=== PATIENT | female | born 1975 | race Caucasian/White ===

== ENCOUNTER 2017-05-07 08:01 | Inpatient (IN) | payer MEDICAID ==
[~2017-05-07] VITALS: Ht 162.6 cm; Wt 55.8 kg
--- NOTE | 2017-05-07 08:01 | NUR ---
STACIE 78 FROM HOME FOR ALTERED MENTAL STATUS, SM=[id number] IN THE FIELD. NAD NOTED. VSS. PT PLACED IN GOWN AND MONITOR. DR THAYER AT BEDSIDE FOR EVAL.
[2017-05-07] MEDS ORDERED: IV SET PRIMARY 1 EA INFUS.SET MC ONE (08:11)
[2017-05-07] MEDS ORDERED: IV NS 0.9% 1,000 ML ONE (08:11)
[2017-05-07] MEDS ORDERED: LORAZEPAM INJ 2 MG/ML VIAL ONE ×3 (08:17→09:50)
[2017-05-07] MEDS ORDERED: HALOPERIDOL LACTATE INJ 5 MG/ML VIAL ONE (08:27)
[2017-05-07] MEDS ORDERED: diphenhydrAMINE HCL 50 MG/ML VIAL ONE (08:27)
[2017-05-07] MEDS ORDERED: LORAZEPAM INJ 2 MG/ML VIAL IV ONE ×4 (08:30→10:30)
[2017-05-07] MEDS ORDERED: IV NS 0.9% 1,000 ML BAG IV ONE (08:30)
[2017-05-07] MEDS ORDERED: HALOPERIDOL LACTATE INJ 5 MG/ML VIAL IM ONE ×2 (08:30→20:00)
[2017-05-07] MEDS ORDERED: diphenhydrAMINE HCL 50 MG/ML VIAL IV ONE (08:30)
[2017-05-07 08:42] LABS: APPEARANCE,URINE SL CLOUDY (CLEAR); BILIRUBIN,URINE NEGATIVE (NEGATIVE); BLOOD, URINE 2+ Ery/uL (NEGATIVE); COLOR,URINE YELLOW (YELLOW); KETONES,URINE 2+ (NEGATIVE); LEUKOCYTE ESTERASE ,URINE NEGATIVE (NEGATIVE); NITRITE, URINE NEGATIVE (NEGATIVE); PROTEIN,URINE TRACE mg/dl (NEGATIVE); UGLUCOSE NEGATIVE (NEGATIVE); UROBILINOGEN,URINE 0.2 EU/dL (0.2)
[2017-05-07 08:45] LABS: PREGNANCY TEST URINE QUAL NEGATIVE (NEGATIVE)
[2017-05-07 08:50] LABS: BACTERIA,URINE 1+ /HPF (None Seen); WBC,URINE 0-2 /HPF (0-3)
[2017-05-07 08:55] LABS: HEMATOCRIT 36 % (33-45); HEMOGLOBIN 12.5 g/dL (11.5-14.8); LYMPHOCYTES # (AUTO) 0.9 /CMM (0.8-4.8); LYMPHOCYTES % (AUTO) 7.6 % (20.0-44.0); MEAN CORPUSCULAR HEMOGLOBIN 30 PG (26.0-33.0); MEAN CORPUSCULAR HGB CONC 35 g/dl (31.0-36.0); MEAN CORPUSCULAR VOLUME 85 fL (82-100); MONOCYTES # (AUTO) 0.6 /CMM (0.1-1.30); MONOCYTES % (AUTO) 4.6 % (2.0-12.0); NEUTROPHILS # (AUTO) 10.5 /CMM (1.8-8.9); NEUTROPHILS % (AUTO) 87.8 % (43.0-81.0); PLATELET COUNT (AUTO) 184 /CMM (150-450); RDW COEFFICIENT OF VARIATION 11.6 (11.5-15.0); RED BLOOD CELL COUNT(AUTO) 4.18 MIL/uL (4.0-5.2); WHITE BLOOD COUNT (AUTO) 11.9 K/uL (4.3-11.0)
[2017-05-07 09:05] LABS: CALCIUM, SERUM 8.1 mg/dL (8.5-10.1); CARBON DIOXIDE 20 mmol/L (21-32); CHLORIDE 88 mmol/L (98-107); CREATININE 0.8 mg/dL (0.6-1.3); GLUCOSE 118 mg/dL (74-106); POTASSIUM 4.7 mmol/L (3.5-5.1); SODIUM SERUM 124 mmol/L (136-145); UREA NITROGEN, BLOOD 7 mg/dL (7-18)
[2017-05-07 09:11] LABS: ALANINE AMINOTRANSFERASE 40 U/L (12-78); ALBUMIN 3.5 g/dL (3.4-5.0); ALKALINE PHOSPHATASE 51 U/L (46-116); ASPARTATE AMINOTRANSFERASE 92 U/L (15-37); BILIRUBIN,DIRECT 0.4 mg/dL (0.0-0.2); BILIRUBIN,TOTAL 1.4 mg/dL (0.2-1.0); TOTAL PROTEIN, SERUM 7.3 g/dL (6.4-8.2)
[2017-05-07 09:13] LABS: ALCOHOL, BLOOD < 3 mg/dL (0-0)
[2017-05-07 09:21] LABS: THYROID STIMULATING HORMONE 0.957 uIU/mL (0.358-3.74)
--- NOTE | 2017-05-07 10:21 | NUR ---
PT BACK FROM CT
--- NOTE | 2017-05-07 14:25 | NUR ---
PAGED DR VILLALOBOS FOR ADMISSION
[2017-05-07 14:56] LABS: CALCIUM, SERUM 8.2 mg/dL (8.5-10.1); CREATININE 0.8 mg/dL (0.6-1.3); POTASSIUM 3.4 mmol/L (3.5-5.1)
--- NOTE | 2017-05-07 15:12 | NUR ---
REPORT GIVEN TO CARITO EDMONDS FOR TEE
[2017-05-07 15:50] VITALS: BP 110/65
--- NOTE | 2017-05-07 15:50 | NUR ---
RN NOTES PT RECEIVED FROM ER IN ROOM 113-2. PT IS LETHARGIC , NON VERBAL , RESTLESS, RESPIRATION EVEN AND UNLABORED , ON , SAT 97%, PLACED ON TELE MONITOR , ST HR IN 100'S , R AC IV SITE CDI, SKIN ASSESSMENT AND PHOTO DONE, SR UP x3, CALL LIGHT WITHIN EASY REACH, CONTINUE , BED ALARM ON, CONTINUE TO MONITOR PT CLOSELY AND NOTIFY MD FOR ANY SIGNIFICANT CHANGES.
[2017-05-07] MEDS ORDERED: MAGNESIUM HYDROXIDE 30 ML UDC PO PRN (17:30)
[2017-05-07] MEDS ORDERED: ENOXAPARIN SODIUM 40 MG/0.4 ML DISP.SYRIN SQ SCH (17:30)
[2017-05-07] MEDS ORDERED: ONDANSETRON HCL/PF 4 MG/2 ML VIAL IVP PRN (17:30)
[2017-05-07] MEDS ORDERED: ACETAMINOPHEN 325 MG TABLET PO PRN (17:30)
[2017-05-07] MEDS ORDERED: Z GUARD REMEDY 2 OZ OINT TP PRN (17:30)
[2017-05-07] MEDS ORDERED: MAG HYDROX/AL HYDROX/SIMETH 30 ML UDC PO PRN (17:30)
[2017-05-07] MEDS ORDERED: IV SET PRIMARY PUMP SET 1 EA INFUS.SET MC ONE (17:44)
[2017-05-07] MEDS: IV NS 0.9% 1,000 ML IV PRN (17:49)
[2017-05-07 18:14] LABS: CALCIUM, SERUM 8.4 mg/dL (8.5-10.1); CREATININE 0.7 mg/dL (0.6-1.3); POTASSIUM 3.2 mmol/L (3.5-5.1)
--- NOTE | 2017-05-07 18:36 | NUR ---
RN NOTES PT REMAINS THE SAME ,RESTLESS, NON VERBAL , K=3.2, DR VILLALOBOS NOTIFIED , MEDICATED PER MD ORDER , WILL ENFORCE TO TIRE RECAPPING MACHINE OPERATOR FOR CONTINUITY OF CARE
--- NOTE | 2017-05-07 19:00 | NUR ---
RN NOTES K= 3.2, PT VERY RESTLESS, DR SCHULZ PAGED AND NOTIFIED , NEW ORDER GIVEN .
[2017-05-07] MEDS: LORAZEPAM INJ 2 MG/ML VIAL IV PRN (19:21)
[2017-05-07] MEDS ORDERED: POTASSIUM CHLORIDE 20 MEQ POWDER PACKET PO ONE (19:30)
--- NOTE | 2017-05-07 19:53 | NUR ---
TELE-TD/TECHNICIAN ASSISTANT DR. SCHULZ PAGED TWICE REGARDING PT EXTREME AGITATION POST MED ADMINISTRATION. AWAITING CALL BACK.
--- NOTE | 2017-05-07 19:57 | NUR ---
TELE-TD/IRONWORKER APPRENTICE SHOP DR. SCHULZ CALLED BACK NEW ORDERS RECEIVED AND CARRIED OUT.
[2017-05-07 20:00] VITALS: BP 109/67
--- NOTE | 2017-05-07 20:05 | NUR ---
TELE-TD/APPRENTICE LINEMAN THIRD STEP PT MEDICATED ORDERED. WILL CONTINUE TELE MONITORING. SITTER AT BEDSIDE. WILL CONTINUE TO MONITOR CLOSELY.
[2017-05-08] VITALS (7 sets, daily range): BP systolic 86–99; BP diastolic 55–73
[2017-05-08] MEDS ORDERED: POTASSIUM CL. PREMIX PERIPHER. 150 ML ONE (00:20)
[2017-05-08] MEDS ORDERED: SECONDARY IV SET 1 EA INFUS.SET MC ONE ×2 (00:20→12:13)
[2017-05-08] MEDS: POTASSIUM CL. PREMIX PERIPHER. 50 ML IV SCH ×8 (00:29→15:45)
[2017-05-08] MEDS: LORAZEPAM INJ 2 MG/ML VIAL IV PRN (01:30)
[2017-05-08] MEDS ORDERED: POTASSIUM CL. PREMIX PERIPHER. 50 ML ONE (01:31)
[2017-05-08] MEDS ORDERED: HALOPERIDOL LACTATE INJ 5 MG/ML VIAL IM PRN (05:00)
--- NOTE | 2017-05-08 05:01 | NUR ---
TELE-TD/MANAGING JEWELER PT STILL EXTREMELY AGITATED. NEW ORDERS RECEIVED AND CARRIED OUT. SEPULVEDA CATH PLACED VIA STERILE PROCEDURE BY MYSELF. PT TOLERATED PROCEDURE, BUT REMAINS HIGHLY AGITATED WITH EXTREME CONFUSION. SITTER AT BEDSIDE. WILL CONTINUE TO MONITOR. Addendum: 05/08/17 at 0510 by LATANYA LEWIS LVN PT ALSO DISLODGED HER IV. MADE AWARE. ORDER TO DC LAST BAG OF IVPB KCL AND OK FOR PT TO BE WITHOUT IV ACCESS AT THIS TIME.
--- NOTE | 2017-05-08 07:20 | NUR ---
RN INITIAL NOTES: Rec'd pt asleep on bed, not in any distress, aroused by tapping her shoulder - opens eyes, A/O x1, moans. On room air, no SOB noted. On telemonitor, Has FC patent & intact draining to adequate urine output. No IV line noted. Has B wrist restraints, no injury noted. Provided comfort & safety measures. Bed kept low & in locked position. 1:1 sitter at bedside. Will continue to monitor.
[2017-05-08 07:23] LABS: HEMATOCRIT 39 % (33-45); HEMOGLOBIN 13.9 g/dL (11.5-14.8); LYMPHOCYTES # (AUTO) 1.3 /CMM (0.8-4.8); LYMPHOCYTES % (AUTO) 13.2 % (20.0-44.0); MEAN CORPUSCULAR HEMOGLOBIN 30 PG (26.0-33.0); MEAN CORPUSCULAR HGB CONC 36 g/dl (31.0-36.0); MEAN CORPUSCULAR VOLUME 84 fL (82-100); MONOCYTES # (AUTO) 0.5 /CMM (0.1-1.30); MONOCYTES % (AUTO) 4.8 % (2.0-12.0); NEUTROPHILS # (AUTO) 8.2 /CMM (1.8-8.9); PLATELET COUNT (AUTO) 148 /CMM (150-450); RDW COEFFICIENT OF VARIATION 11.9 (11.5-15.0); RED BLOOD CELL COUNT(AUTO) 4.64 MIL/uL (4.0-5.2)
[2017-05-08 07:38] LABS: CALCIUM, SERUM 8.1 mg/dL (8.5-10.1); CREATININE 0.7 mg/dL (0.6-1.3); MAGNESIUM 1.8 mg/dL (1.8-2.4); PHOSPHORUS 2.6 mg/dL (2.5-4.9); POTASSIUM 3.4 mmol/L (3.5-5.1)
[2017-05-08] MEDS: PANTOPRAZOLE 40 MG TABLET.DR PO SCH (08:08)
--- NOTE | 2017-05-08 10:00 | NUR ---
RN NOTES: Dr. Ospina made aware that 3 bags of KCL infused last night as pt pulled out her IV line. K this AM is 3.4 w/ orders to give 40 meqs KCL, carried out.
[2017-05-08] MEDS: IV NS 0.9% 1,000 ML IV PRN (12:35)
--- NOTE | 2017-05-08 15:00 | NUR ---
RN NOTES: Pt seen & examined by Dr. Ospina.
--- NOTE | 2017-05-08 15:29 | NUR ---
RN NOTES: As per Dr. Anai RUCKER Haloperidol.
[2017-05-08] MEDS: HYDROCODONE/APAP 5/325MG 1 EACH TABLET PO PRN ×2 (15:44→18:42)
--- NOTE | 2017-05-08 16:00 | NUR ---
RN NOTES: Pt seen & examined by Dr. Gleason.
[2017-05-08 18:28] LABS: CALCIUM, SERUM 7.8 mg/dL (8.5-10.1); CREATININE 0.6 mg/dL (0.6-1.3); POTASSIUM 3.9 mmol/L (3.5-5.1)
[2017-05-08 18:38] LABS: URINE SODIUM, RANDOM < 5 mmol/l (40-220)
--- NOTE | 2017-05-08 18:56 | NUR ---
RN CLOSING NOTES: Pt is more alert, oriented x 2-3, not in any distress, cooperative, able to make needs known but still unable to recall what had happened to her yesterday. On room air, no SOB. On telemonitor, now SR. R hand G22 kept patent & intact w/ no signs of infection/ infiltration noted w/ NS x 100 cc/hr infusing well. Pt off bilateral wrist restraints, no injury noted. Family at bedside. Pt has 1:1 sitter. Kept well rested. Needs attended. Bed kept low & in locked position. Will endorse to PM RN for TEE.
[2017-05-08 21:27] LABS: OSMOLALITY,URINE 155 mOS/kg (340-1090)
--- NOTE | 2017-05-08 21:54 | NUR ---
RN RAJ NOTES SPOKE WITH DR SCHULZ REGARDING LOVENOX 40MG, PLT OF 148 TODAY AND YESTERDAY PLT IS 184. PT IS ABLE TO MOVE, ORDERED TO D/C LOVENOX, CARRIED OUT THE ORDER. WILL CONTINUE TO MONITOR
[2017-05-09] VITALS: BP 94/58
[2017-05-09] MEDS: IV NS 0.9% 1,000 ML IV PRN ×2 (02:53→13:10)
[2017-05-09 04:00] VITALS: BP 85/49
--- NOTE | 2017-05-09 07:00 | NUR ---
RN NOTES: RECEIVED PT ON BED, A/Ox4, RESPIRATION EVEN AND UNLABORED, ON RA , NO SOB NOTED, ON TELE SR , OOB TO BSC WITH MINIMUM ASSIST, SUPPORTIVE FAMILY AT THE BEDSIDE ,R HAND IV SITE CDI, IVF NS AT 100CC/HR RUNNING VIA R HAND IV SITE, PT JOSE MIGUEL ANY DISTRESS , CONTINUE TO MONITOR PT CLOSELY AND NOTIFY MD FOR ANY SIGNIFICANT CHANGES
--- NOTE | 2017-05-09 07:23 | NUR ---
RN CLOSING NOTES NO SIGNIFICANT CHANGES OVERNIGHT. PT IS ALERT ORIENTED X4, AND COOPERATIVE WITH ALL CARE. PT IS ON ROOM AIR AND SATURATING VERY WELL, IV SITE IS PATENT, NO S/SX OF INFECTION OR INFILTRATION NOTED. ALL MEDS GIVEN ORDERED PT PETER IT WELL. ASSISTED PT WITH ADL WITH MINIMAL ASSIST. ALL SAFETY MEASURES MET, WILL ENDORSED TO AM NURSE FOR CONTINUATION OF CARE.
--- NOTE | 2017-05-09 07:54 | NUR ---
WOUND CARE CONSULT: PT PRESENTS WITH DRY ABRASIONS, PRESENT ON ADMISSION. PT ABLE TO MOVE INDEPENDENTLY IN BED. PT IS CONTINENT BUT STATES IS HAVING RECTAL BLEEDING. WILL SEE PRN. Addendum: 05/09/17 at 0755 by LISET VILLANUEVA WNDNU Amended: Links added.
[2017-05-09 08:00] VITALS: BP 90/60
[2017-05-09] MEDS: PANTOPRAZOLE 40 MG TABLET.DR PO SCH (08:21)
[2017-05-09 08:37] LABS: CALCIUM, SERUM 7.5 mg/dL (8.5-10.1); CREATININE 0.5 mg/dL (0.6-1.3); MAGNESIUM 1.7 mg/dL (1.8-2.4); PHOSPHORUS 2.2 mg/dL (2.5-4.9); POTASSIUM 3.5 mmol/L (3.5-5.1)
[2017-05-09 10:27] LABS: URIC ACID 4.6 mg/dL (2.6-7.2)
[2017-05-09 10:53] LABS: THYROID STIMULATING HORMONE 2.425 uIU/mL (0.358-3.74)
[2017-05-09 12:00] VITALS: BP 94/54
[2017-05-09] MEDS ORDERED: SECONDARY IV SET 1 EA INFUS.SET MC ONE (13:26)
[2017-05-09] MEDS: Magnesium 1GM/D5W 100ML PREMIX 100 ML IV SCH ×2 (13:31→14:52)
[2017-05-09] MEDS: HYDROCODONE/APAP 5/325MG 1 EACH TABLET PO PRN ×2 (14:54→19:54)
[2017-05-09 16:00] VITALS: BP 95/53
[2017-05-09] MEDS ORDERED: K PHOS NEUTRAL 250 MG TABLET PO ONE (16:30)
--- NOTE | 2017-05-09 18:54 | NUR ---
RN NOTES PT STABLE ,OOB TO BSC , MEDICATED PER MD ORDER , SUPPORTIVE FAMILY AT THE BEDSIDE , NO SIGNIFICANT CHANGES NOTED ON THIS SHIFT .
--- NOTE | 2017-05-09 19:30 | NUR ---
ELECTRIC TAPE SLITTER INITIAL NOTE RECEIVED REPORT FROM NITHYA EDMONDS. PT IN BED, A/A/O X4. FAMILY AT BEDSIDE, MOM AND AUNT. LUNG SOUNDS CLEAR. BOWEL SOUNDS PRESENT. PT CURRENTLY HAVING HER PERIOD. IV PATENT AND INTACT. PULSES PRESENT. BED IN LOW LOCKED POSITION. CALL LIGHT WITHIN REACH. WILL CONTINUE TO MONITOR.
[2017-05-09 20:00] VITALS: BP_SYST 107; BP_DIAS 60; BP_DIAS 70
[2017-05-10] VITALS: BP 112/77
[2017-05-10 04:00] VITALS: BP 105/65
--- NOTE | 2017-05-10 07:00 | NUR ---
RN INITIAL NOTE RECEIVED REPORT FROM CASSIDY ARREOLA NURSE FOR TEE. MOM IS @ BEDSIDE WITH PT. PT A/O X4. TELE SR. R WRIST #22G . ALL SAFETY MEASURES IN PLACE. WILL CONTINUE TO MONITOR.
[2017-05-10 07:03] LABS: CREATININE 0.5 mg/dL (0.6-1.3); PHOSPHORUS 3.8 mg/dL (2.5-4.9); POTASSIUM 3.1 mmol/L (3.5-5.1)
[2017-05-10 08:00] VITALS: BP 114/73
[2017-05-10] MEDS: PANTOPRAZOLE 40 MG TABLET.DR PO SCH (08:06)
--- NOTE | 2017-05-10 10:40 | NUR ---
RN NOTE CALLED PHARMACY REGARDING REPLACING POTASSIUM. PHARMACY VERIFIED PT IS ON LIST AWAITING REPLACEMENT.
[2017-05-10] MEDS: POTASSIUM CHLORIDE 20 MEQ TAB.PRT.SR PO SCH ×2 (11:25→12:54)
[2017-05-10 12:00] VITALS: BP 107/71
[2017-05-10 12:59] LABS: ALBUMIN 2.8 g/dL (3.4-5.0); BILIRUBIN,DIRECT 0.1 mg/dL (0.0-0.2); BILIRUBIN,TOTAL 0.5 mg/dL (0.2-1.0); TOTAL PROTEIN, SERUM 6.1 g/dL (6.4-8.2)
[2017-05-10 13:07] LABS: BASOPHILS % (AUTO) 0.4 % (0.0-2.0); EOSINOPHILS % (AUTO) 1.1 % (0.0-6.0); HEMATOCRIT 32 % (33-45); HEMOGLOBIN 10.8 g/dL (11.5-14.8); LYMPHOCYTES # (AUTO) 1.1 /CMM (0.8-4.8); LYMPHOCYTES % (AUTO) 25.3 % (20.0-44.0); MEAN CORPUSCULAR HEMOGLOBIN 29 PG (26.0-33.0); MEAN CORPUSCULAR HGB CONC 34 g/dl (31.0-36.0); MEAN CORPUSCULAR VOLUME 87 fL (82-100); MONOCYTES # (AUTO) 0.2 /CMM (0.1-1.30); MONOCYTES % (AUTO) 5.5 % (2.0-12.0); NEUTROPHILS # (AUTO) 2.9 /CMM (1.8-8.9); NEUTROPHILS % (AUTO) 67.7 % (43.0-81.0); PLATELET COUNT (AUTO) 121 /CMM (150-450); RDW COEFFICIENT OF VARIATION 12.7 (11.5-15.0); RED BLOOD CELL COUNT(AUTO) 3.68 MIL/uL (4.0-5.2); WHITE BLOOD COUNT (AUTO) 4.3 K/uL (4.3-11.0)
--- NOTE | 2017-05-10 14:38 | NUR ---
PRINCIPAL CYBER ENGINEER NOTE PT DC HOME WITH MOM AND AUNT. PT LEFT VIA TAXI. ALL ORDERS CARRIED OUT. ALL DC INSTRUCTIONS GIVEN TO PT. ALL QUESTIONS ANSWERED. REMOVED IV AND ID BAND. BELONGINGS LIST SIGNED AND PHOTOS TAKEN AND PUT IN CHART. PT CLEAN WARM AND DRY. EDUCATED PT ON IMPORTANCE OF F/U UP WITH PCP IN 1-2 WKS. PT LEAVING TO [place] ON FRIDAY WITH MOM.
== END 2017-05-10 14:30 | disposition home or self-care (01) | DRG 812 ==
LOC: EDBD 08:09 → ER 08:09 → TELE-TD 15:14 → TELE1 05-09 16:50 → MEDSG1 05-10 10:18
PROVIDERS: ADMIT Internal Medicine; ATTEND Internal Medicine
DX: T50.901A Poisoning by unspecified drugs, medicaments and biological substances, accidental (unintentional), initial encounter (principal); G92 Toxic encephalopathy; E87.2 Acidosis; E87.1 Hypo-osmolality and hyponatremia; E87.6 Hypokalemia; Y92.009 Unspecified place in unspecified non-institutional (private) residence as the place of occurrence of the external cause; F10.21 Alcohol dependence, in remission
CPT/HCPCS: 36415; 70450-TC; 80048-TC; 80061-TC; 80076-TC; 80305; 81000-TC; 83735-TC; 83935-TC; 84100-TC; 84300-TC; 84443-TC; 84550-TC; 84703-TC; 85025-TC; 87081-TC; 87086-TC; 95819-TC; G0480; J1200; J1630; J1650; J2060; J3475; J3480; J7030; Z7610